=== PATIENT | male | born 1975 | race Caucasian/White ===

== ENCOUNTER → 2019-07-26 18:30 | Outpatient (CLI) | payer SELFPAY | END | disposition home or self-care (01) | LOC: D.LABREF 18:30 | PROVIDERS: ATTEND Surgery | DX: L98.9 Disorder of the skin and subcutaneous tissue, unspecified (principal) ==

== ENCOUNTER → 2019-07-27 13:18 | Outpatient (CLI) | payer SELFPAY | END | disposition home or self-care (01) | LOC: D.LABREF 13:18 | PROVIDERS: ATTEND Surgery | DX: L98.9 Disorder of the skin and subcutaneous tissue, unspecified (principal) ==

== ENCOUNTER 2019-08-26 06:04 | Day surgery (SDC) | payer SELFPAY ==
[~2019-08-26] VITALS: Ht 180.3 cm; Wt 105.7 kg
--- NOTE | ~2019-08-26 | OP ---
PATIENT NAME: ALFRED PENA MEDICAL RECORD: [id number] :71 LOCATION:[facility] ADMISSION DATE: SURGEON: KIRILL MARADIAGA MD DATE OF OPERATION: 08/26/2019 PREOPERATIVE DIAGNOSIS: Basal cell carcinoma of the right upper chest. POSTOPERATIVE DIAGNOSIS: Basal cell carcinoma of the right upper chest. PROCEDURE: Wide local excision of right upper chest basal cell carcinoma. SURGEON: Kirill Maradiaga MD REPORT OF PROCEDURE: The patient's right upper chest was prepped and draped in sterile fashion. We marked out 0.5 cm margins in all directions and then extended this superiorly and inferiorly along with the length of our mass in order to prevent dog ears. After we had everything marked out appropriately, then using a 15-blade I came through the skin and subcutaneous tissue. I was able to go all the way down to the underlying fascia overlying the underlying muscle and then I took this mass off of the fascia. The mass was marked appropriately and sent off for permanent specimen. Measurements, length of the incision was 10 cm. The wound was then undermined in all directions and we irrigated out the wound with normal saline. A total of 10 mL of 0.25% Marcaine with epinephrine was infused into the surrounding tissues and then the skin incision was closed with multiple interrupted vertical mattress sutures. There was good approximation of the tissue and a dressing was applied. COMPLICATIONS: None. CONDITION: Stable. ANESTHESIA: General endotracheal and local. BLOOD LOSS: Minimal. TRANSINT:[id number] Voice Confirmation ID: [id number] DOCUMENT ID: [id number] KIRILL MARADIAGA MD CC: RONN RIOS [id number] DICTATION DATE: 08/26/19918 TIMBER REPAIRER: 08/26/19 1540 [facility] 08/26/[address] [facility] [address] [place] [address]
[2019-08-26 06:46] LABS: BASOPHILS 0.9 % (0-2); CALC OSMOLALITY 278 mosm/kg (275-300); CALCIUM 8.8 mg/dL (8.5-10.1); CARBON DIOXIDE 26.7 mmol/L (21.0-32.0); CHLORIDE - SERUM 105 mmol/L (98-107); CREATININE - SERUM 1.1 mg/dL (0.6-1.3); EOSINOPHILS 3.1 % (0-7); GLUCOSE 98 mg/dL (74-106); HEMATOCRIT 42.9 % (42.0-54.0); HEMOGLOBIN 14.1 g/dL (13.5-17.5); IMMATURE GRANULOCYTES 0.3 % (0-5); MCH 32.8 pg (26.0-34.0); MCHC 32.9 g/dL (31.0-37.0); MCV 99.8 fL (80.0-100.0); MONOCYTES 9.1 % (2-11); NEUTROPHILS 53.6 % (40-80); PLATELET COUNT 272 10x3/uL (130-400); POTASSIUM - SERUM 4.4 mmol/L (3.5-5.1); RDW 12.7 % (11.5-14.5); SODIUM 138 mmol/L (136-145); UREA NITROGEN 21 mg/dL (7-18); WBC 7.8 10x3/uL (4.8-10.8); eGFR NON AFRICAN AMERICAN 76 mL/min (90-120)
[2019-08-26 06:55] LABS: APTT 27.6 SECONDS (22.8-39.4); INR 0.91 (0.85-1.17); PROTIME 12.3 SECONDS (11.6-15.0)
[2019-08-26 07:25] VITALS: BP 127/77; Ht 180.3 cm; Wt 105.7 kg
[2019-08-26] MEDS ORDERED: HYDROCODON-ACE1 EA10 PO (09:16)
--- NOTE | 2019-08-26 11:08 | NUR ---
1030-VSS. DENIES PAIN. DRESSING CDI.NO N/V. REMOVED IV WITH CATH INTACT,DISPOSED INTO SHARPS,COVERED WITH GUAZE,SECURED WITH MEDIPORE TAPE.
--- NOTE | 2019-08-26 11:09 | NUR ---
1052-REVIEWED POST OPERATIVE INSTRUCTIONS AND FOLLOW UP APPOINTMENT. VSS. NO PAIN. NO N/V. DRESSING TO NECK CDI.
--- NOTE | 2019-08-26 11:10 | NUR ---
1055-PT DRESSED. ESCORTED OUT VIA W/C WITH FRIEND AWAITING TO DRIVE HOME
== END 2019-08-26 10:55 | disposition home or self-care (01) ==
LOC: D.PAN 06:04 → D.OPS 08:15 → D.PAN 08:15
PROVIDERS: Anesthesiology; ATTEND Surgery
DX: C44.519 Basal cell carcinoma of skin of other part of trunk (principal); L98.9 Disorder of the skin and subcutaneous tissue, unspecified